=== PATIENT | female | born 1975 | race Caucasian/White ===

== ENCOUNTER 2024-11-14 09:58 | Emergency (ER) | payer SELFPAY ==
[~2024-11-14] VITALS: Ht 160 cm; Wt 56.7 kg
[2024-11-14] MEDS ORDERED: METOCLOPRAMIDE HCL 10 MG/2 ML VIAL ONE (10:39)
[2024-11-14] MEDS ORDERED: diphenhydrAMINE 50 MG/1 ML VIAL ONE (10:39)
[2024-11-14] MEDS ORDERED: ACETAMINOPHEN 500 MG TABLET ONE (10:39)
[2024-11-14] MEDS ORDERED: DEXAMETHASONE SOD PHOSPHATE 4 MG INJ ONE (10:40)
[2024-11-14] MEDS: IV NORMAL SALINE 1000 ML BAG IV ONE (11:00)
[2024-11-14] MEDS: METOCLOPRAMIDE HCL 10 MG/2 ML VIAL IV ONE (11:00)
[2024-11-14] MEDS: diphenhydrAMINE 50 MG/1 ML VIAL IVP ONE (11:01)
[2024-11-14] MEDS: ACETAMINOPHEN 500 MG TABLET PO ONE (11:01)
[2024-11-14] MEDS: DEXAMETHASONE SOD PHOSPHATE 4 MG INJ IV ONE (11:01)
[2024-11-14] MEDS ORDERED: IBUP-1955 PO (11:14)
[2024-11-14 11:23] VITALS: BP 111/64; O2SAT 95
== END 2024-11-14 11:24 | disposition home or self-care (01) ==
LOC: ER 09:58
DX: S09.8XXA Other specified injuries of head, initial encounter (principal); R11.0 Nausea; Z60.2 Problems related to living alone; X58.XXXA Exposure to other specified factors, initial encounter; Y93.89 Activity, other specified; Y92.89 Other specified places as the place of occurrence of the external cause; Y99.8 Other external cause status
CPT/HCPCS: 70450; A4606; A4663; A9150; J1100; J1200; J2765; J7040

== ENCOUNTER 2024-11-16 09:15 | Emergency (ER) | payer SELFPAY ==
[~2024-11-16] VITALS: Ht 160 cm; Wt 59.0 kg
[~2024-11-16 09:15] MED LIST: IBUP-1955 PO
[2024-11-16] MEDS ORDERED: METOCLOPRAMIDE HCL 10 MG/2 ML VIAL ONE (09:40)
[2024-11-16] MEDS ORDERED: KETOROLAC TROMETHAMINE 30 MG INJ ONE (09:40)
[2024-11-16 09:45] LABS: BASOPHILS % (AUTO) 0.2 % (0.0-2.0); EOSINOPHILS % (AUTO) 0.6 % (0.0-7.0); HEMATOCRIT 37.8 % (31.2-41.9); HEMOGLOBIN 12.8 g/dL (10.9-14.3); LYMPHOCYTES % (AUTO) 22.1 % (20.5-51.5); MEAN CORPUSCULAR HEMOGLOBIN 28.7 uug (24.7-32.8); MEAN CORPUSCULAR HGB CONC 34 g/dL (32.3-35.6); MEAN CORPUSCULAR VOLUME 84.9 fL (75.5-95.3); MONOCYTES # (AUTO) 0.4 K/uL (0.1-1.30); MONOCYTES % (AUTO) 8.8 % (0.0-11.0); NEUTROPHILS # (AUTO) 3.2 K/uL (1.8-8.9); NEUTROPHILS % (AUTO) 68.3 % (38.5-71.5); PLATELET COUNT (AUTO) 229 K/uL (179-408); RED BLOOD CELL COUNT(AUTO) 4.45 MIL/uL (3.63-4.92); RED CELL DISTRIBUTION WIDTH 13.5 % (12.3-17.7); WHITE BLOOD COUNT (AUTO) 4.7 K/uL (3.8-11.8)
[2024-11-16] MEDS ORDERED: LORAZEPAM 2 MG/1 ML VIAL IV ONE (09:45)
[2024-11-16] MEDS: IV NORMAL SALINE 1000 ML BAG IV ONE (09:49)
[2024-11-16] MEDS: KETOROLAC TROMETHAMINE 30 MG INJ IVP ONE (09:49)
[2024-11-16] MEDS: METOCLOPRAMIDE HCL 10 MG/2 ML VIAL IV ONE (09:49)
[2024-11-16 09:52] LABS: DIFFERENTIAL COMMENT 1
[2024-11-16 09:54] LABS: CALCIUM 9.2 mg/dL (8.5-10.1); CREATININE 0.9 mg/dL (0.6-1.3); POTASSIUM 4.3 mmol/L (3.5-5.1)
[2024-11-16] MEDS ORDERED: METO-295 PO (10:08)
[2024-11-16 10:11] VITALS: BP 94/53; O2SAT 98
[2024-11-16 10:29] LABS: *URINE HCG, QUAL NEGATIVE (NEGATIVE)
== END 2024-11-16 10:12 | disposition home or self-care (01) ==
LOC: ER 09:15
DX: G44.309 Post-traumatic headache, unspecified, not intractable (principal); F07.81 Postconcussional syndrome; R11.2 Nausea with vomiting, unspecified; R45.1 Restlessness and agitation; Z60.2 Problems related to living alone
CPT/HCPCS: 99284; 96374; 96375; 80048; 84703; 85025; 36415; J1885; J2765; J7040; A4606; A4663

== ENCOUNTER 2024-12-06 21:00 | Emergency (ER) | payer SELFPAY ==
[~2024-12-06] VITALS: Ht 165.1 cm; Wt 59.0 kg
[~2024-12-06 21:00] MED LIST changes: +METO-295 PO
[2024-12-07 00:39] VITALS: BP 101/52; TEMP 97.8; O2SAT 97
== END 2024-12-07 00:39 | disposition home or self-care (01) ==
LOC: ER 21:10
DX: S06.0X0A Concussion without loss of consciousness, initial encounter (principal); R11.0 Nausea; R42 Dizziness and giddiness; Z60.2 Problems related to living alone; W18.39XA Other fall on same level, initial encounter; Y93.89 Activity, other specified; Y92.89 Other specified places as the place of occurrence of the external cause; Y99.8 Other external cause status
CPT/HCPCS: 70450; A4606; A4663

== ENCOUNTER 2025-03-03 20:03 | Emergency (ER) | payer MEDICAID ==
[~2025-03-03] VITALS: Ht 160 cm; Wt 56.7 kg
[2025-03-03 20:06] VITALS: BP 95/59
[2025-03-03] MEDS ORDERED: LIDOCAINE 5% PATCH TD ONE (21:10)
[2025-03-03] MEDS: LIDOCAINE 5% PATCH TD ONE (21:14)
[2025-03-03] MEDS ORDERED: LIDO30AD10 TP (21:19)
[2025-03-03] MEDS ORDERED: diclofenac gel TOP (21:19)
[2025-03-03 22:01] VITALS: BP 100/62; O2SAT 97
== END 2025-03-03 21:25 | disposition home or self-care (01) ==
LOC: ER 20:07
DX: M25.812 Other specified joint disorders, left shoulder (principal); M25.512 Pain in left shoulder; F32.A Depression, unspecified; Z60.2 Problems related to living alone; W18.39XA Other fall on same level, initial encounter; Y93.89 Activity, other specified; Y92.89 Other specified places as the place of occurrence of the external cause; Y99.8 Other external cause status
CPT/HCPCS: 73020; A4606; A4663